=== PATIENT | male | born 1935 | race Caucasian/White ===

== ENCOUNTER 2018-08-11 12:08 | Emergency (ER) | payer BC, MEDICARE ==
[2018-08-11 12:13] VITALS: TEMP 98.1
[2018-08-11] MEDS ORDERED: SODIUM CHLORIDE 0.9% 1,000 ML IV STA (12:20)
--- NOTE | 2018-08-11 12:25 | ED ---
Neuro HPI - General Chief Complaint: Neuro Symptoms/Deficit Stated Complaint: right side weakness Time Seen by Provider: 08/11/18 12:15 Source: patient, RN notes reviewed Mode of arrival: wheelchair Limitations: no limitations - History of Present Illness Is the patient presenting with stroke symptoms?: Yes Initial Comments: This is a 83-year-old male with no prior history of stroke with a history of a 5 way coronary artery bypass about 20 years ago who has sudden onset 11 AM this morning of difficulty moving his right leg and right hand. No headache blurry vision nausea vomiting fevers chills sweats or other symptoms. He's not sure if he has some improvement in his leg or not he denies any trauma he did lose his balance and go down with no injury sustained. - Related Data Home Medications: Home Medications Medication Instructions Recorded Confirmed Aspirin [Adult Low Dose Aspirin EC] 81 mg PO QAM 06/14/16 08/11/18 Atorvastatin Calcium [Lipitor] 20 mg PO HS 06/14/16 08/11/18 Diltiazem HCl [Diltiazem ER] 300 mg PO QAM 06/14/16 08/11/18 Losartan Potassium 100 mg PO QAM 06/14/16 08/11/18 Omeprazole 20 mg PO QAM 06/14/16 08/11/18 Multivit-Min/FA/Lycopen/Lutein 1 tab PO QAM 08/11/18 08/11/18 [Centrum Silver Men Tablet] Vit C/E/Zn/Coppr/Lutein/Zeaxan 1 cap PO BID 08/11/18 08/11/18 [Preservision Areds 2 Softgel] Zinc 50 mg PO QAM 08/11/18 08/11/18 Allergies/Adverse Reactions: Allergies Allergy/AdvReac Type Severity Reaction Status Date / Time No Known Allergies Allergy Verified 08/11/18 13:46 Review of Systems ROS Statement: Those systems with pertinent positive or pertinent negative responses have been documented in the HPI. ROS Other: All systems not noted in ROS Statement are negative. General Exam - General Exam Comments Initial Comments: Physical well-developed well-nourished awake alert oriented 3 male Limitations: no limitations General appearance: alert, anxious Head exam: Present: atraumatic, normocephalic, normal inspection Eye exam: Present: normal appearance, PERRL, EOMI. Absent: scleral icterus, conjunctival injection, periorbital swelling ENT exam: Present: normal exam, mucous membranes moist Neck exam: Present: normal inspection, full ROM, other (No stridor JVD or bruits ). Absent: tenderness, meningismus, lymphadenopathy Respiratory exam: Present: normal lung sounds bilaterally. Absent: respiratory distress, wheezes, rales, rhonchi, stridor Cardiovascular Exam: Present: regular rate, normal rhythm, normal heart sounds. Absent: systolic murmur, diastolic murmur, rubs, gallop, clicks GI/Abdominal exam: Present: soft, normal bowel sounds. Absent: distended, tenderness, guarding, rebound, rigid, bruit, pulsatile mass Extremities exam: Present: normal inspection, normal capillary refill. Absent: full ROM (Right upper lower extremity hemiparesis), tenderness, pedal edema, joint swelling, calf tenderness Back exam: Present: normal inspection Neurological exam: Present: alert, oriented X3, CN II-XII intact, motor sensory deficit (Right upper and lower extremity weakness) Psychiatric exam: Present: normal affect, normal mood Skin exam: Present: warm, dry, intact, normal color. Absent: rash Stroke MDM - Lab Data Result diagrams: 08/11/18 12:26 08/11/18 12:26 Lab Results 08/11/18 08/11/18 08/11/18 Range/Units 12:26 12:26 12:26 WBC 6.0 (3.8-10.6) k/uL RBC 5.53 (4.30-5.90) m/uL Hgb 17.3 (13.0-17.5) gm/dL Hct 51.1 (39.0-53.0) % MCV 92.4 (80.0-100.0) fL MCH 31.2 (25.0-35.0) pg MCHC 33.8 (31.0-37.0) g/dL RDW 13.0 (11.5-15.5) % Plt Count 205 (150-450) k/uL Neutrophils % 60 % Lymphocytes % 23 % Monocytes % 10 % Eosinophils % 3 % Basophils % 1 % Neutrophils # 3.6 (1.3-7.7) k/uL Lymphocytes # 1.4 (1.0-4.8) k/uL Monocytes # 0.6 (0-1.0) k/uL Eosinophils # 0.2 (0-0.7) k/uL Basophils # 0.0 (0-0.2) k/uL PT (9.0-12.0) sec INR (<1.2) APTT (22.0-30.0) sec Sodium 140 (137-145) mmol/L Potassium 4.5 (3.5-5.1) mmol/L Chloride 105 (98-107) mmol/L Carbon Dioxide 25 (22-30) mmol/L Anion Gap 10 mmol/L BUN 20 (9-20) mg/dL Creatinine 1.22 (0.66-1.25) mg/dL Est GFR (CKD-EPI)AfAm 63 (>60 ml/min/1.73 sqM) Est GFR (CKD-EPI)NonAf 54 (>60 ml/min/1.73 sqM) Glucose 127 H (74-99) mg/dL Calcium 10.0 (8.4-10.2) mg/dL Total Bilirubin 0.8 (0.2-1.3) mg/dL AST 29 (17-59) U/L ALT 32 (21-72) U/L Alkaline Phosphatase 83 (38-126) U/L Total Creatine Kinase 90 (55-170) U/L CK-MB (CK-2) 1.4 (0.0-2.4) ng/mL CK-MB (CK-2) Rel Index 1.6 Troponin I <0.012 (0.000-0.034) ng/mL Total Protein 8.2 (6.3-8.2) g/dL Albumin 4.4 (3.5-5.0) g/dL 08/11/18 Range/Units 12:26 WBC (3.8-10.6) k/uL RBC (4.30-5.90) m/uL Hgb (13.0-17.5) gm/dL Hct (39.0-53.0) % MCV (80.0-100.0) fL MCH (25.0-35.0) pg MCHC (31.0-37.0) g/dL RDW (11.5-15.5) % Plt Count (150-450) k/uL Neutrophils % % Lymphocytes % % Monocytes % % Eosinophils % % Basophils % % Neutrophils # (1.3-7.7) k/uL Lymphocytes # (1.0-4.8) k/uL Monocytes # (0-1.0) k/uL Eosinophils # (0-0.7) k/uL Basophils # (0-0.2) k/uL PT 10.7 (9.0-12.0) sec INR 1.0 (<1.2) APTT 25.5 (22.0-30.0) sec Sodium (137-145) mmol/L Potassium (3.5-5.1) mmol/L Chloride (98-107) mmol/L Carbon Dioxide (22-30) mmol/L Anion Gap mmol/L BUN (9-20) mg/dL Creatinine (0.66-1.25) mg/dL Est GFR (CKD-EPI)AfAm (>60 ml/min/1.73 sqM) Est GFR (CKD-EPI)NonAf (>60 ml/min/1.73 sqM) Glucose (74-99) mg/dL Calcium (8.4-10.2) mg/dL Total Bilirubin (0.2-1.3) mg/dL AST (17-59) U/L ALT (21-72) U/L Alkaline Phosphatase (38-126) U/L Total Creatine Kinase (55-170) U/L CK-MB (CK-2) (0.0-2.4) ng/mL CK-MB (CK-2) Rel Index Troponin I (0.000-0.034) ng/mL Total Protein (6.3-8.2) g/dL Albumin (3.5-5.0) g/dL - NIH Stroke Scale 1a. Level of Consciousness: (0) alert 1b. LOC Questions: (0) answers correctly 1c. LOC Commands: (0) performs tasks correctly 2. Best Gaze: (0) normal 3. Visual: (0) no visual loss 4. Facial Palsy: (0) normal symmetrical movement 5a. Motor Arm Left: (0) no drift 5b. Motor Arm Right: (2) some gravity effort 6a. Motor Leg Left: (0) no drift 6b. Motor Leg Right: (1) drift 7. Limb Ataxia: (0) absent 8. Sensory: (0) normal 9. Best Language: (0) no aphasia 10. Dysarthria: (0) normal 11. Extinction/Inattention: (0) no abnormality - Medical Decision Making A code stroke was called on the patient as he presented with right upper lower extremity weakness and started 11 AM. He is slowly getting better throughout the day he is not NIH of 2. He is not a candidate for intervention at this time has no obvious lesions are seen. X-rays demonstrating chronic changes. I did discuss the findings with the patient's family the request transfer to [facility] as we have no neurology in this facility this time. I did discuss the case with Dr. Lamb - EKG Data -: EKG Interpreted by Me EKG shows normal: sinus rhythm (Sinus rhythm occasional PVCs rate was 72874 QRS duration 102 QT since QTC 384/440) Past Medical History Past Medical History: Coronary Artery Disease (CAD), Cancer, Hyperlipidemia, Hypertension Additional Past Medical History / Comment(s): RIGHT FOOT BUNION, HX PROSTATE CA History of Any Multi-Drug Resistant Organisms: None Reported Past Surgical History: Coronary Bypass/CABG, Prostate Surgery Additional Past Surgical History / Comment(s): CABG X4, PROSTATECTOMY, GAIL CAT, CAROTIDENDARTERECTOMY Past Anesthesia/Blood Transfusion Reactions: No Reported Reaction Past Psychological History: No Psychological Hx Reported Smoking Status: Former smoker - Past Family History Brother(s) Family Medical History: Cancer Additional Family Medical History / Comment(s): 1 PROSTATE, 1 COLON CA Course Vital Signs 08/11/18 08/11/18 08/11/18 12:10 12:25 12:30 Temperature 98.1 F Pulse Rate 72 74 70 Respiratory 16 16 18 Rate Blood Pressure 173/105 204/97 188/102 O2 Sat by Pulse 96 96 Oximetry 08/11/18 08/11/18 08/11/18 12:45 13:00 13:15 Temperature Pulse Rate 69 63 61 Respiratory 19 19 15 Rate Blood Pressure 191/103 176/99 173/91 O2 Sat by Pulse Oximetry 08/11/18 08/11/18 13:30 13:45 Temperature Pulse Rate 93 68 Respiratory 22 17 Rate Blood Pressure 173/93 183/90 O2 Sat by Pulse Oximetry - Reevaluation(s) Reevaluation #1: 08/11/18 12:43 Reevaluation by return from CAT scan patient states he has no improvement but no worsening of his current condition with right upper and lower extremity weakness. I did discuss the the current exam findings with the family they believe that his face and voice Lauren/speech is all within normal limits. I was originally questioning some perceived asymmetry to the left side of his mouth they believe this is normal for him. Reevaluation #2: 08/11/18 12:53 The patient's case was discussed with Dr. Wlels and the patient is not a candidate for TPA or mechanical intervention at this time. Reevaluation #3: 08/11/18 13:52 Evaluation patient is starting get more use of his extremities than earlier. Critical Care Time Critical Care Time: Yes Critical Care Time: 35 minutes of critical care time which includes initial presentation with history physical labs x-rays multiple reevaluation the patient discussion with the patient's finding care the patient family members. Contact was made with interventional neurology. Discussion with the receiving facility Dr. Carvalho at [facility] documentation of the above. Disposition Clinical Impression: Cerebrovascular accident, Transient cerebral ischemia Disposition: OTHER INSTITUTION NOT DEFINED Condition: Serious Referrals: Feliz Lentz DO [Primary Care Provider] - 1-2 days - Out of Hospital Transfer - Req. Specs Out of Hospital Transfer - Requested Specifics: Other Emergency Center
[2018-08-11 12:40] LABS: Basophils % (A) 1 %; Eosinophils # (A) 0.2 k/uL (0-0.7); Eosinophils % (A) 3 %; HCT 51.1 % (39.0-53.0); HGB 17.3 gm/dL (13.0-17.5); Lymphocytes # (A) 1.4 k/uL (1.0-4.8); Lymphocytes % (A) 23 %; MCH 31.2 pg (25.0-35.0); MCHC 33.8 g/dL (31.0-37.0); MCV 92.4 fL (80.0-100.0); Mean Platelet Volume 8.5; Monocytes # (A) 0.6 k/uL (0-1.0); Monocytes % (A) 10 %; Neutrophils # (A) 3.6 k/uL (1.3-7.7); Neutrophils % (A) 60 %; Platelet Count 205 k/uL (150-450); RBC 5.53 m/uL (4.30-5.90)
[2018-08-11 12:46] LABS: Partial Thromboplastin Time 25.5 sec (22.0-30.0); Prothrombin Time 10.7 sec (9.0-12.0)
[2018-08-11 12:51] LABS: Albumin 4.4 g/dL (3.5-5.0); Potassium 4.5 mmol/L (3.5-5.1); Total Bilirubin 0.8 mg/dL (0.2-1.3); Total Protein 8.2 g/dL (6.3-8.2)
[2018-08-11] MEDS ORDERED: ASPIRIN 81 MG PO STA (12:53)
--- NOTE | 2018-08-11 12:57 | CT ---
EXAMINATION TYPE: CT brain wo con for TPA DATE OF EXAM: 08/11/2018 COMPARISON: None HISTORY: 83-year-old male with right sided weakness TECHNIQUE: Examination was done in axial plane without intravenous contrast. Coronal and sagittal r econstructions performed. CT DLP: 1129.8 mGycm Automated exposure control for dose reduction was used. FINDINGS: There is no evidence of acute intracranial hemorrhage, acute ischemic changes, mass, mass-effect, or extra-axial fluid collection. There is no effacement of cerebral sulci or basal subarachnoid cister ns. There is no hydrocephalus. There is no midline shift. Scruggs-white matter distinction is preserv ed. Moderate patchy white matter hypodensities in both cerebral hemispheres, left greater than right. Add itional area of encephalomalacia in the inferior right occipital lobe. Mild generalized supratentoria l volume loss. Underlying nasal septum. Paranasal sinuses and mastoid air cells well pneumatized. IMPRESSION: 1. Mild generalized atrophy. Moderate patchy changes of chronic small vessel ischemic disease. No acu te intracranial abnormality seen. 2. 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
[2018-08-11 13:01] LABS: Creatine Kinase 90 U/L (55-170)
[2018-08-11 13:13] LABS: Creatine Kinase MB 1.4 ng/mL (0.0-2.4); Troponin I <0.012 ng/mL (0.000-0.034)
--- NOTE | 2018-08-11 13:24 | CT ---
EXAMINATION TYPE: CT angio head neck DATE OF EXAM: 08/11/2018 COMPARISON: CT head same day HISTORY: 83-year-old male neurologic deficits, right sided weakness TECHNIQUE: Contiguous axial scanning of the head and neck performed with IV Contrast, patient injecte d with 65 mL of Isovue 370. Coronal/sagittal MIP reconstructions performed. 3-D reconstructions gener ated on a dedicated independent workstation. CT DLP: 455.9 mGycm Automated exposure control for dose reduction was used. FINDINGS: NECK: Moderate atherosclerotic calcifications of the aortic arch with conventional branching anatomy. Moderate plaque at the origin of the right brachiocephalic artery. The right common carotid artery is patent. Prominent atherosclerotic changes at the right bifurcation with severe, greater than 70% stenosis at the right carotid bulb. The left common carotid artery is patent. Moderate atelectatic changes at the left carotid bifurcatio n without significant narrowing. The bilateral vertebral arteries are patent throughout their course and codominant. Underlying calcified granulomas with emphysematous change and extensive dependent atelectasis in the lungs. Head: There are mild atherosclerotic calcifications eccentric in the V4 segment left vertebral artery. Hill tional [id number] atherosclerotic calcifications in the carotid siphons. The internal, vertebra l, and basilar arteries are otherwise patent without significant stenosis. No large vessel intracrani al arterial occlusion. This possible moderate to severe atherosclerotic narrowing at the origin of th e A1 segment left posterior cerebral artery and mild to moderate at the origin of the P1 segment righ t posterior cerebral artery, refer to coronal series 505 image 15. No aneurysmal change seen. IMPRESSION: NECK: 1. PROMINENT ATHEROSCLEROTIC CHANGES AT THE RIGHT BIFURCATION WITH A SEVERE, GREATER THAN 70% STENOSI S AT THE RIGHT CAROTID BULB. 2. MODERATE ATHEROSCLEROTIC CHANGES AT THE LEFT BIFURCATION WITHOUT SIGNIFICANT ATHEROSCLEROTIC NARRO WING. HEAD: 1. NO LARGE VESSEL INTRACRANIAL ARTERIAL OCCLUSION. 2. HOWEVER, THERE APPEARS TO BE A MODERATE TO SEVERE FOCAL STENOSIS AT THE ORIGIN OF THE P1 SEGMENT L EFT POSTERIOR CEREBRAL ARTERY AND [id number] ON THE RIGHT (CORONAL SERIES 505 IMAGE 15).
--- NOTE | 2018-08-11 14:09 | XR ---
EXAMINATION TYPE: XR chest 2V DATE OF EXAM: 08/11/2018 COMPARISON: NONE HISTORY: Altered mental status TECHNIQUE: Frontal and lateral views of the chest are obtained. FINDINGS: There is no heart failure nor confluent pneumonic infiltrate. There is 5 mm calcified gran uloma right upper lobe. There is some coarsening of interstitial markings. There are sternal wires. T here are chest leads. There is no pleural effusion. IMPRESSION: Pulmonary interstitial fibrosis. Old granulomatous disease. No acute lung disease.
[2018-08-11 14:39] VITALS: BP 177/104; PULSE 66; RESP 13
[2018-08-11] MEDS ORDERED: CLOPIDOGREL 75 MG TAB PO STA (14:41)
== END 2018-08-11 14:49 | disposition short-term general hospital (02) ==
LOC: EC 12:08
DX: I63.9 Cerebral infarction, unspecified (principal); Z87.891 Personal history of nicotine dependence; R29.702 NIHSS score 2; E78.5 Hyperlipidemia, unspecified; I10 Essential (primary) hypertension; I25.10 Atherosclerotic heart disease of native coronary artery without angina pectoris; Z79.82 Long term (current) use of aspirin; Z79.899 Other long term (current) drug therapy; Z85.46 Personal history of malignant neoplasm of prostate; Z95.1 Presence of aortocoronary bypass graft; Z90.79 Acquired absence of other genital organ(s)
CPT/HCPCS: 36415; 93005; 80053; 82550; 82553; 84484; 85025; 85610; 85730; 71046; 70496; 70450; 70498; 99291; 96360; Q9967

== ENCOUNTER → 2018-08-14 | Outpatient (CLI) | payer OTHER ==
--- NOTE | 2018-08-14 16:34 | MR ---
EXAMINATION TYPE: MR brain wo con DATE OF EXAM: 08/14/2018 COMPARISON: CT angio head and neck and CT brain dated 08/11/2018 HISTORY: Altered mental status with right-sided weakness TECHNIQUE: Multiplanar, multisequence images of the brain and brainstem is performed without intravenous contras t. FINDINGS: Diffusion weighted images demonstrate no evidence of a recent infarct or other diffusion ab normality. There is linear signal within the left insular cortex just lateral to the lentiform nucleu s on diffusion-weighted imaging with corresponding hyperintensity on ADC map. However there are multi ple foci of restricted diffusion within the subcortical and deep white matter of the left frontal and parietal lobes, approximately 18 and number measuring up to 3 mm. Findings raise suspicion for embol ic infarcts. There is no extra-axial fluid collection. Encephalomalacia from a prior right occipital lobe infarct is seen. Severe burden T2/flair hyperintensities are scattered throughout the subcortical and periven tricular white matter, most commonly on the basis of chronic microangiopathy or possibly from long-st anding embolic disease. Major intracranial flow voids are maintained. The ventricular system and cisternal spaces are symmetr ically prominent compatible with age-related volume loss. Midline structures demonstrate normal morphology. The craniocervical junction appears within normal limits. The dural venous sinuses appear patent. Scant mucosal thickening is seen within the ethmoid s inuses. The remaining visualized sinuses are clear and the globes are intact. There is leftward nasal septal deviation. IMPRESSION: Numerous punctate foci of restricted diffusion within the subcortical and deep white josemanuel er of the left frontal and parietal lobe indicating an acute microinfarcts concerning for embolic dis ease given the number (approximately 18 sub-3 mm foci). A [place] level critical message alert has been initiated for Gisele Calderon MD via the [employer] Critical Results System on 08/14/2018 4:32 PM. This message alert has been sent to Gisele Calderon MD via the preferences provided by the clinician for the receipt of Radiology Critical Findi ngs. Message ID [id number].
== END | disposition home or self-care (01) ==
LOC: RADMRIMAIN 15:57
PROVIDERS: ATTEND Psychiatry & Neurology Neurology
DX: I63.89 Other cerebral infarction (principal)
CPT/HCPCS: 70551

== ENCOUNTER → 2018-10-14 | Outpatient (CLI) | payer MEDICARE ==
--- NOTE | 2018-10-14 14:48 | NM ---
EXAMINATION TYPE: NM bone scan whole body DATE OF EXAM: 10/14/2018 COMPARISON: NONE HISTORY: Prostate cancer Delayed whole-body scanning was performed following the injection of 24 mCi Tc 99m MDP. Images acqui red 3 hours post injection. FINDINGS: Uptake within the knees, hands, wrists, elbows, shoulders, sternoclavicular joints is likely degenera tive. No area of increased or decreased uptake is suggestive of metastatic disease. Soft tissue uptak e is normal. Urine contamination noted incidentally over the anterior midline pelvic region. Uptake i n the lower lumbar spine is likely due to degenerative disc disease. IMPRESSION: Metastatic disease is not evident.
== END | disposition home or self-care (01) ==
LOC: RADNMMAIN 10:02
PROVIDERS: ATTEND Urology
DX: C61 Malignant neoplasm of prostate (principal)
CPT/HCPCS: 78306; A9503

== ENCOUNTER → 2020-10-13 | Outpatient (CLI) | payer MEDICARE | END | disposition home or self-care (01) | LOC: LABWHC1 12:01 | PROVIDERS: ATTEND Urology | DX: C61 Malignant neoplasm of prostate (principal) | CPT/HCPCS: 36415; 84153 ==

== ENCOUNTER → 2022-03-21 | Outpatient (CLI) | payer MEDICARE | END | disposition home or self-care (01) | LOC: LABWHC1 10:58 | PROVIDERS: ATTEND Urology | DX: R97.21 Rising PSA following treatment for malignant neoplasm of prostate (principal) | CPT/HCPCS: 36415; 84153 ==

== ENCOUNTER → 2024-04-01 | Outpatient (CLI) | payer MEDICARE ==
[2024-04-01 15:36] LABS: ALT 16 U/L (10-49); AST 22 U/L (14-35); Albumin 4.1 g/dL (3.8-4.9); Albumin/Globulin Ratio 1.11 Ratio (1.60-3.17); Alkaline Phosphatase 87 U/L (41-126); BUN/Creat Ratio 19.38 Ratio (12.00-20.00); Blood Urea Nitrogen 25.2 mg/dL (9.0-27.0); Calcium 10.2 mg/dL (8.7-10.3); Carbon Dioxide 22.2 mmol/L (21.6-31.8); Chloride 104 mmol/L (96-109); Chol/HDL Ratio 4.51 Ratio; Globulin 3.7 g/dL (1.6-3.3); Glucose 121 mg/dL (70-110); LDL Cholesterol,Calculated 76.5 mg/dL (0.0-131.0); Potassium 4.4 mmol/L (3.5-5.5); Prostate Specific Antigen 6.11 ng/mL (0.000-6.500); Sodium 139 mmol/L (135-145); Total Bilirubin 0.8 mg/dL (0.3-1.2); Total Protein 7.8 g/dL (6.2-8.2)
== END | disposition home or self-care (01) ==
LOC: LABWHC1 11:03
PROVIDERS: ATTEND Internal Medicine Interventional Cardiology
DX: C61 Malignant neoplasm of prostate (principal); E78.2 Mixed hyperlipidemia
CPT/HCPCS: 36415; 80053; 80061; 84153

== ENCOUNTER → 2024-05-05 | Outpatient (CLI) | payer MEDICARE ==
[2024-05-05 15:36] LABS: NT-Pro-B-Type Natriuretic Pept 1758 pg/mL (0-450)
[2024-05-05 17:58] LABS: Blood Urea Nitrogen 25.1 mg/dL (9.0-27.0); Carbon Dioxide 22.3 mmol/L (21.6-31.8); Chloride 102 mmol/L (96-109); Potassium 4.1 mmol/L (3.5-5.5); Sodium 138 mmol/L (135-145)
== END | disposition home or self-care (01) ==
LOC: LABWHC1 10:53
PROVIDERS: ATTEND Internal Medicine Interventional Cardiology
DX: I25.5 Ischemic cardiomyopathy (principal)
CPT/HCPCS: 36415; 80051; 82565; 83880; 84520